=== PATIENT | female | born 1985 | race Asian ===

== ENCOUNTER 2018-08-20 01:21 | Inpatient (IN) | payer OTHER ==
[2018-08-20] MEDS ORDERED: OXYTOCIN/RINGERS LACTATE 1,000 ML IV PRN (02:30)
[2018-08-20] MEDS ORDERED: LIDOCAINE 1% 300 MG/30 ML SDV SC PRN (02:30)
[2018-08-20] MEDS ORDERED: MISOPROSTOL 200 MCG TAB PO PRN (02:30)
[2018-08-20] MEDS ORDERED: IBUPROFEN 600 MG TAB PO PRN (02:30)
[2018-08-20] MEDS ORDERED: EPSOM SALT 454 GM TP PRN (02:30)
[2018-08-20] MEDS ORDERED: TERBUTALINE SULFATE 1 MG/ML VIAL IV PRN (02:30)
[2018-08-20] MEDS ORDERED: OLIVE OIL 118 ML BTL MISC PRN (02:30)
[2018-08-20] MEDS ORDERED: AMMONIA AROMATIC 1 EACH AMP IH PRN (02:30)
--- NOTE | 2018-08-20 02:30 | PDGENHP ---
History and Physical - Chief Complaint SROM, labor - History of Present Illness 32 yo at 38w6d who presents this evening in labor, reporting SROM with clear fluid at 2200 on 08/19/18. Contractions have become regular and painful since her water broke. complicated by thrombocytopenia, previa which resolved, and echogenic cardiac focus. She did have normal NIPT. First at term in [place], reports labor did take a long time and pushed for "many hours." Baby was 7 lbs 2 oz. Labs: O pos Antibody Neg Rubella Immune HIV/RPR/HepB neg Carrier declined GC/C neg AFP normal NIPT normal Parvo NON immune Varicella immune History Information - Allergies/Home Medication List Allergies/Adverse Reactions: No Known Allergies Allergy (Unverified 11/22/12 18:35) Home Medications: No Medications [No Known] 1 ea [facility] [place] [Last Taken Unknown] I have personally reviewed and updated: family history, medical history, social history, surgical history - Surgical History Reports: no pertinent surgical hx - Family History Positive for: non-pertinent - Social History Smoking Status: Never smoked Alcohol Use: None Review of Systems Review of Systems: ROS: 10pt was reviewed & negative except for what was stated in HPI & below Physical Exam Physical Exam: Appears comfortable, grossly ruptured, clear fluid. Vashti regularly, belly soft between, longitudinal lie. FHR 145bpm, mod deyanira, accels present, no decels Category I Lab Data & Imaging Review 08/20/18 02:37 Assessment & Plan Assessment: 32 yo at 38w6d here in labor, grossly ruptured with clear fluid, GBS negative. - Will want epidural - Plts 121, will alert anesthesia. - GBS neg. - Rh pos, Rubella immune. - Expectant mgmt. JM
[2018-08-20] MEDS: LR 1,000 ML IV PRN ×2 (02:36→03:08)
[2018-08-20] MEDS ORDERED: OLIVE OIL 118 ML BTL ONE (02:42)
[2018-08-20] MEDS ORDERED: AMMONIA AROMATIC 1 EACH AMP IH ONE (02:42)
[2018-08-20] MEDS ORDERED: MISOPROSTOL 200 MCG TAB ONE (02:42)
[2018-08-20] MEDS ORDERED: OXYTOCIN 10 UNIT/ML VIAL ONE (02:42)
[2018-08-20] MEDS ORDERED: LIDOCAINE 1% 300 MG/30 ML SDV ONE (02:42)
[2018-08-20 02:48] LABS: PLATELET COUNT 121 10^3/uL (150-400)
[2018-08-20] MEDS ORDERED: fentaNYL 2MCG/ML/BUP 0.1% RTU 100 ML BAG EP ONE (03:07)
[2018-08-20] MEDS ORDERED: PHENYLEPHRINE HCL 100 MCG/ML SYR ONE (03:07)
[2018-08-20] MEDS ORDERED: PHENYLEPHRINE HCL 100 MCG/ML SYR IVP PRN (03:37)
--- NOTE | 2018-08-20 03:37 | PREANESOB ---
Obstetric Pre-Anesthesia Info - General Info : 3 Para: 1 ALPHONSE: 08/28/18 Gestational Age: 38 week(s) and 6 day(s) - Info Status: Full Term, Lombardi Monitors: External FHR Pattern: Reassuring - Labor Status PIH: No Indications for Labor Analgesia: Pain Control Labor Epidural: Proposed Anesthesia Allergies/Adverse Reactions: Allergy/AdvReac Type Severity Reaction Status Date / Time No Known Allergies Allergy Unverified 11/22/12 18:35 Home Medications: Medication Instructions Recorded No Medications [No Known] [facility] Visit Medications: Generic Name Dose Route Start Last Admin Trade Name Freq PRN Reason Stop Dose Admin Ammonia (Aromatic Spirit) 1 each 08/20/18 02:30 Ammonia Aromatic IH 08/30/18 02:29 ONCE PRN Fainting Lactated Ringer's 1,000 mls @ 0 mls/hr 08/20/18 02:30 08/20/18 03:08 Lr IV 08/21/18 02:29 1,000 mls PRN PRN Administration SEE PROTOCOL CONDITIONS Protocol Per Protocol Oxytocin/Lactated Ringer's 1,000 mls @ 0 mls/hr 08/20/18 02:30 Pitocin 20 Units/Lr (Premix) IV PRN PRN Post bleeding Per Protocol Ibuprofen 600 mg 08/20/18 02:30 Motrin PO ONCE PRN post , pain Lidocaine HCl 300 mg 08/20/18 02:30 Lidocaine Hcl 1% SC 02/16/19 02:29 ONCE PRN episiotomy Magnesium Sulfate 454 gm 08/20/18 02:30 Epsom Salt TP 02/16/19 02:29 Q1H PRN perineal discomfort Misoprostol 800 - 1,000 mcg 08/20/18 02:30 Cytotec PO 02/16/19 02:29 ONCE PRN Vaginal Atony/Bleeding Gypsum Oil 118 ml 08/20/18 02:30 Sweet Oil MISC 02/16/19 02:29 ONCE PRN perineal massage Terbutaline Sulfate 0.25 mg 08/20/18 02:30 Brethine IV 02/16/19 02:29 ONCE PRN Tachysystole Discontinued Medications Generic Name Dose Route Start Last Admin Trade Name Freq PRN Reason Stop Dose Admin Ammonia (Aromatic Spirit) Confirm 08/20/18 02:42 Ammonia Aromatic Administered 08/20/18 02:43 Dose 1 each IH .STK-MED ONE Fentanyl/Bupivacaine HCl Confirm 08/20/18 03:07 Fentanyl/Bupivacaine/Ns 2 Mcg/Ml 0.1% (Premix Administered 08/20/18 03:08 Dose 100 ml EP .STK-MED ONE Lidocaine HCl Confirm 08/20/18 02:42 Lidocaine Hcl 1% Administered 08/20/18 02:43 Dose 300 mg .ROUTE .STK-MED ONE Misoprostol Confirm 08/20/18 02:42 Cytotec Administered 08/20/18 02:43 Dose 1,000 mcg .ROUTE .STK-MED ONE Gypsum Oil Confirm 08/20/18 02:42 Sweet Oil Administered 08/20/18 02:43 Dose 118 ml .ROUTE .STK-MED ONE Oxytocin Confirm 08/20/18 02:42 Pitocin Administered 08/20/18 02:43 Dose 40 unit .ROUTE .STK-MED ONE Phenylephrine HCl Confirm 08/20/18 03:07 Neosynephrine Administered 08/20/18 03:08 Dose 1,000 mcg .ROUTE .STK-MED ONE - Vital Signs Height/Weight (Nursing): Height 157.48 cm Weight 55.338 kg - Focused Exam Neck exam: FROM Mallampati Score: Class 1 Mouth exam: normal dental/mouth exam Pulmonary: no respiratory distress, no rales or rhonchi, clear to auscultation Cardiovascular: regular rate and rhythym, no murmur, rub, or gallop Labs: 08/20/18 02:37 - Plan Consent Signed and on Chart: Yes Patient/Guardian Understands and Agrees to Plan: Yes
--- NOTE | 2018-08-20 03:55 | POSTANESTH ---
Post Anesthetic Evaluation Cardiovascular Status: Normal, Stable, Similar to Pre-Op Cond Respiratory Status: Normal, Stable, Similar to Pre-op Cond. Level of Consciousness/Mental Status: Can Participate in Eval, Alert and Oriented Pain Control: Adequate, Prn Tx Ordered Nausea/Vomiting Control: Adequate, Prn Tx Ordered Complications Possibly Related to Anesthesia: None Noted
[2018-08-20] MEDS ORDERED: LR 500 ML IV SCH (04:00)
[2018-08-20] MEDS ORDERED: fentaNYL 2MCG/ML/BUP 0.1% RTU 100 ML EP SCH (04:00)
--- NOTE | 2018-08-20 04:39 | OBDEL ---
Info Type: Vaginal Presentation at Delivery: Vertex L&D Analgesia/Anesthesia Type: None GBS+: No Intrapartum Medications: Generic Name Dose Route Start Last Admin Trade Name Freq PRN Reason Stop Dose Admin Lactated Ringer's 1,000 mls @ 0 mls/hr 08/20/18 02:30 08/20/18 03:08 Lr IV 08/21/18 02:29 1,000 mls PRN PRN Administration SEE PROTOCOL CONDITIONS Protocol Per Protocol Oxytocin/Lactated Ringer's 1,000 mls @ 0 mls/hr 08/20/18 02:30 08/20/18 04:06 Pitocin 20 Units/Lr (Premix) IV 1,000 mls PRN PRN Administration Post bleeding Per Protocol Fentanyl/Bupivacaine HCl 100 mls @ 0 mls/hr 08/20/18 04:00 08/20/18 03:28 Fentanyl/Bupivacaine/Ns 2 Mcg/Ml 0.1% (Premix EP 08/30/18 03:59 100 mls CONT LORENE Administration Protocol As Directed Indications for Delivery: Spontaneous Labor, SROM Vaginal Delivery - Delivery Provider Delivery Physician/CNM: Shan Lua - Labor and Delivery Onset of Contractions Date: 08/19/18 Onset of Contractions Time: 22:00 Onset of Contractions Type: Spontaneous Rupture of Membranes Date: 08/19/18 Rupture of Membranes Time: 22:00 Rupture of Membranes Type: Spontaneous Amniotic Fluid Color: Clear Dilation Complete Date: 08/20/18 Dilation Complete Time: 03:30 Placenta Delivery Date: 08/20/18 Placenta Delivery Time: 04:06 Total Hours of Labor: 6 Laceration: 2nd Degree Repair: 3-0 Vaginal Sponge Count Correct: Yes Vaginal Needle Count Correct: Yes Vaginal Sweep Performed: Yes EBL: 200 Delivery Events: None Delivery Comment: Uncomplicated . 2nd degree. Unmedicated. EBL 200cc - Medications Labor Augmentation/Induction Methods Used: None Data ALPHONSE: 08/28/18 Gestational Age: 38 week(s) and 6 day(s) Lombardi Delivery Date: 08/20/18 Delivery Time: 04:03 Sex of : Male Score (1 Min): 8 Score (5 Min): 9 Shoulder Dystocia Time Head Delivered: 04:03 Time Body Delivered: 04:03 ICD10 Worksheet Patient Problems: Problems Problem Status Onset (spontaneous vaginal delivery) Acute - ICD10 Problem Qualifiers (1) (spontaneous vaginal delivery)
[2018-08-20] MEDS ORDERED: HYDROCORTISONE 0.5% CREAM TP PRN (04:41)
[2018-08-20] MEDS ORDERED: oxyCODONE IR 5 MG TAB PO PRN (04:41)
[2018-08-20] MEDS ORDERED: SIMETHICONE 80 MG TAB CHEW PO PRN (04:41)
[2018-08-20] MEDS: ACETAMINOPHEN 325 MG TAB PO SCH ×3 (06:19→18:49)
[2018-08-20] MEDS: IBUPROFEN 600 MG TAB PO SCH ×3 (10:59→23:09)
[2018-08-20] MEDS: DOCUSATE SODIUM 100 MG CAP PO PRN (12:38)
[2018-08-21] MEDS: ACETAMINOPHEN 325 MG TAB PO SCH ×4 (03:23→18:01)
[2018-08-21] MEDS: IBUPROFEN 600 MG TAB PO SCH ×4 (10:07→23:13)
[2018-08-21] MEDS: DOCUSATE SODIUM 100 MG CAP PO PRN (10:07)
--- NOTE | 2018-08-21 10:11 | OBPP ---
Progress Note Assessment/Plan: Assessment: s/p PPD # 1 -pt is stable Plan: Continue routine pp care Plan for d/c home today Instructions reviewed with pt Rx given for Motrin and Acyclovir Cont PNV, iron and colace Pelvic rest Follow up at [facility] for pp visit-to call and make an appt 08/21/18 10:08 Subjective/ Course: 08/21/18 10:10 Pt seen and examined. Doing well, with no complaints. Minimal cramping, relief with Motrin. Mod lochia. Pt is OOB, carey regular diet, voiding and BM x 1. BF is going well so far. Pt would like to go home today. Objective: 08/20/18 02:37 Patient ABO/Rh O POSITIVE 08/20/18 02:37 Temp Pulse Resp BP Pulse Ox 36.2 C 69 16 82/52 L 96 08/20/18 20:00 08/20/18 20:00 08/20/18 20:00 08/20/18 20:00 08/20/18 20:00 Uterine Position/Fundal Height: Umbilicus -2 Uterine Tone: Firm Physical Exam - Physical Exam General Appearance: WD/WN, alert, no apparent distress Respiratory: lungs clear, normal breath sounds Cardiac/Chest: regular rate, rhythm Abdomen: normal bowel sounds, non-tender, soft, flatus (+) Extremities: non-tender, normal inspection Skin: normal color, warm/dry Neuro/Psych: alert, normal mood/affect, oriented x 3
--- NOTE | 2018-08-21 10:12 | OBGCSDC ---
General Delivery Information - General Info : 3 Para: 2 Abortions: 1 Type: Vaginal L&D Analgesia/Anesthesia Type: Epidural Admission Date: 08/20/18 Labs: Patient ABO/Rh O POSITIVE 08/20/18 02:37 Hct 37.0 % (38.0-47.0) L 08/20/18 02:37 - Hospital Course : 08/21/18 10:10 Pt seen and examined. Doing well, with no complaints. Minimal cramping, relief with Motrin. Mod lochia. Pt is OOB, carey regular diet, voiding and BM x 1. BF is going well so far. Pt would like to go home today. Vaginal - Delivery Provider Delivery Physician/CNM: Shan Lua - Diagnosis Labor: Spontaneous Rupture of Membranes Type: Spontaneous Amniotic Fluid Color: Clear Laceration: 2nd Degree Repair: 3-0 Delivery Events: None - Delivery EBL: 200 Data ALPHONSE: 08/28/18 Gestational Age: 39 week(s) and 0 day(s) Lombardi Delivery Date: 08/20/18 Delivery Time: 04:02 Sex of Infant: Male Weight (gm): 2912 kg Score (1 Min): 8 Score (5 Min): 9 Discharge Information - Discharge Information Condition: Good Instruction/Follow Up: Two Weeks (with [facility])
--- NOTE | 2018-08-21 11:19 | PDPAINCON ---
Pain Management Consultation - Subjective Pain at rest (/10): 0 Pain with activity (/10): 2 Pain is: no pain at all Activity: able to ambulate - Objective Technique: continuous epidural Catheter site: clean, dry, intact Sensory and motor exam: block has resolved, no apparent ill effects - Assessment/Plan Assessment/Plan: pain well-controlled, continue current mgmt Additional comments: No ill effects from BILLY.
[2018-08-22] MEDS: ACETAMINOPHEN 325 MG TAB PO SCH ×2 (01:55→06:16)
[2018-08-22] MEDS: IBUPROFEN 600 MG TAB PO SCH ×2 (05:11→12:25)
[2018-08-22 08:31] VITALS: BP 96/61
--- NOTE | 2018-08-22 08:34 | OBPP ---
Progress Note Assessment/Plan: Assessment: PPD2 s/p - uncomplicated. Ready for home. Fu with [facility] in 6 wks. We're happy to see her as well. BERNABE Subjective/ Course: 08/21/18 10:10 Pt seen and examined. Doing well, with no complaints. Minimal cramping, relief with Motrin. Mod lochia. Pt is OOB, carey regular diet, voiding and BM x 1. BF is going well so far. Pt would like to go home today. 08/22/18 09:54 Feeling great - ready for home. Will follow up with [facility]. Objective: 08/20/18 02:37 Patient ABO/Rh O POSITIVE 08/20/18 02:37 Temp Pulse Resp BP Pulse Ox 36.3 C 71 16 96/61 L 93 08/22/18 08:28 08/22/18 08:28 08/22/18 08:28 08/22/18 08:28 08/22/18 08:28 Uterine Position/Fundal Height: At Umbilicus Uterine Tone: Firm
== END 2018-08-22 13:15 | disposition home or self-care (01) | DRG 807 ==
LOC: FLD 01:21 → FOB 06:51
PROVIDERS: ADMIT Obstetrics & Gynecology; ATTEND Obstetrics & Gynecology
PROC: 10E0XZZ Delivery of Products of Conception, External Approach (ICD-10-PCS; principal; 2018-08-20)
PROC: 0KQM0ZZ Repair Perineum Muscle, Open Approach (ICD-10-PCS; principal; 2018-08-20)
DX: O70.1 Second degree perineal laceration during delivery (principal); Z37.0 Single live birth; Z3A.38 38 weeks gestation of pregnancy
CPT/HCPCS: J2370; J2590